=== PATIENT | male | born 1950 | race Caucasian/White ===

== ENCOUNTER 2016-08-15 12:35 | Inpatient (IN) | payer MEDICARE ==
[~2016-08-15] VITALS: Ht 180.3 cm; Wt 107.6 kg
[~2016-08-15 12:35] MED LIST: ALBU8.5H3 INH; ALEN35TA6 PO; AMLO5TAB2 PO; ASPI-496 PO; ATOR20TA9 PO; BECL8.7A5 INH; EZET10TA3 PO; FLUT16SP NAS; IPRA15SP NAS; LANS30CA PO; LEVO88TA4 PO; LORA10TA3 PO; METO25TA2 PO; METO25TA35 PO; MONT10TA6 PO; MULT-717 PO; NITR0.4T SL; PRED10TA PO; PRED5TAB PO
[2016-08-15] MEDS ORDERED: PROPOFOL 100 ML IV ONE ×2 (13:58→18:40)
[2016-08-15] MEDS ORDERED: MIDAZOLAM 1 MG/ML, 5ML ONE (14:06)
[2016-08-15] MEDS ORDERED: MIDAZOLAM HCL 25 MG in SODIUM CHLORIDE 0.9% 245 ML IV PRN (14:07)
[2016-08-15] MEDS ORDERED: VECURONIUM 50 MG in SODIUM CHLORIDE 0.9% 250 ML IV PRN (14:07)
[2016-08-15] MEDS ORDERED: PHARMACY MAY ADJ FOR RENAL FX MC SCH (14:30)
[2016-08-15] MEDS ORDERED: PLEASE ENTER HEIGHT AND WEIGHT MC SCH (14:30)
[2016-08-15] MEDS ORDERED: SODIUM BICARBONATE 8.4% 150 MEQ in DEXTROSE 5% 1,000 ML IV SCH ×2 (15:30→15:33)
[2016-08-15] MEDS ORDERED: VANCOMYCIN PER PHARMACY MC PRN (16:00)
[2016-08-15] MEDS ORDERED: PHARMACOKINETIC MONITORING MC PRN (16:00)
[2016-08-15] MEDS: methylPREDNISolone SOD SUCC 40 MG/ML IV SCH ×2 (16:13→22:23)
[2016-08-15 16:14] LABS: BLOOD UREA NITROGEN 23 mg/dL (7-18)
[2016-08-15] MEDS: FAMOTIDINE 20 MG/2 ML IV SCH (16:14)
[2016-08-15] MEDS: ENOXAPARIN 120MG/0.8ML SQ SCH (16:14)
[2016-08-15] MEDS: PIPERACILLIN/TAZO/PMX 3.375GM 50 ML IV SCH ×2 (16:15→22:23)
[2016-08-15 16:22] LABS: ASPARTATE AMINO TRANSFERASE 71 U/L (15-37)
[2016-08-15] MEDS ORDERED: VANCOMYCIN 2,000 MG in SODIUM CHLORIDE 0.9% 500 ML IV ONE (16:30)
[2016-08-15] MEDS ORDERED: MIDAZOLAM 1 MG/ML, 5ML IVPush ONE (16:30)
[2016-08-15] MEDS ORDERED: ALBUTEROL/IPRATROPIUM 2.5MG/0.5MG, 3 ML INLINE PRN (16:30)
[2016-08-15] MEDS: ALBUTEROL/IPRATROPIUM 2.5MG/0.5MG, 3 ML INLINE SCH ×3 (16:30→22:38)
[2016-08-15 17:20] LABS: ABG COLLECTION SITE RIGHT RADIAL; COLLATERAL CIRCULATION TESTING NORMAL
[2016-08-15 17:22] LABS: IS PT STATUS REG ER OR PRE ER? NO
[2016-08-15] MEDS: PROPOFOL 100 ML IV PRN ×2 (18:44→23:18)
[2016-08-15 18:48] LABS: ABG COLLECTION SITE LEFT BRACHIAL
[2016-08-15] MEDS: FENTANYL PF 2,500 MCG in SODIUM CHLORIDE 0.9% 200 ML IV PRN (18:56)
[2016-08-15] MEDS ORDERED: METOPROLOL SUCCINATE 25 MG TAB.ER.24H PO SCH (21:00)
[2016-08-15] MEDS: ATORVASTATIN 20 MG TABLET PO SCH (21:10)
[2016-08-15] MEDS: METOPROLOL TARTRATE 25 MG TABLET PO SCH (21:11)
[2016-08-15 22:45] LABS: IS PT STATUS REG ER OR PRE ER? NO
[2016-08-16] MEDS ORDERED: SODIUM ACETATE 150 MEQ in DEXTROSE 5% 1,000 ML IV SCH
[2016-08-16] MEDS: ALBUTEROL/IPRATROPIUM 2.5MG/0.5MG, 3 ML INLINE SCH ×6 (02:22→22:00)
[2016-08-16] MEDS: ENOXAPARIN 120MG/0.8ML SQ SCH ×2 (02:30→15:34)
[2016-08-16] MEDS: FAMOTIDINE 20 MG/2 ML IV SCH ×2 (02:50→15:29)
[2016-08-16] MEDS: SODIUM ACETATE 150 MEQ in DEXTROSE 5% 1,000 ML IV SCH ×4 (02:51→22:17)
[2016-08-16] MEDS: PROPOFOL 100 ML IV PRN ×4 (03:04→23:26)
[2016-08-16 04:00] VITALS: BP 115/71
[2016-08-16 04:22] LABS: ABG COLLECTION SITE LEFT RADIAL
[2016-08-16 04:23] LABS: COLLATERAL CIRCULATION TESTING NORMAL
[2016-08-16] MEDS: PIPERACILLIN/TAZO/PMX 3.375GM 50 ML IV SCH ×4 (04:57→22:16)
[2016-08-16 05:22] LABS: ASPARTATE AMINO TRANSFERASE 37 U/L (15-37); BLOOD UREA NITROGEN 27 mg/dL (7-18)
[2016-08-16 05:26] LABS: IS PT STATUS REG ER OR PRE ER? NO
[2016-08-16] MEDS: METOPROLOL TARTRATE 25 MG TABLET PO SCH ×2 (06:39→17:43)
[2016-08-16] MEDS: methylPREDNISolone SOD SUCC 40 MG/ML IV SCH ×3 (06:39→22:18)
[2016-08-16] MEDS ORDERED: DILTIAZEM 125 MG in SODIUM CHLORIDE 0.9% 100 ML IV PRN (07:30)
[2016-08-16] MEDS ORDERED: VECURONIUM 50 MG in SODIUM CHLORIDE 0.9% 250 ML IV PRN (08:30)
[2016-08-16] MEDS: ASPIRIN 81 MG TABLET EC PO SCH (10:09)
[2016-08-16] MEDS: EZETIMIBE 10 MG TABLET PO SCH (10:09)
[2016-08-16] MEDS: LEVOTHYROXINE 88 MCG TABLET PO SCH (10:09)
[2016-08-16] MEDS: VANCOMYCIN 2,300 MG in SODIUM CHLORIDE 0.9% 500 ML IV SCH (16:22)
[2016-08-16] MEDS: FUROSEMIDE 40 MG/4 ML IV SCH (17:42)
[2016-08-16] MEDS: ATORVASTATIN 20 MG TABLET PO SCH (22:17)
[2016-08-17] MEDS: ALBUTEROL/IPRATROPIUM 2.5MG/0.5MG, 3 ML INLINE SCH ×6 (01:57→22:00)
[2016-08-17] MEDS: ENOXAPARIN 120MG/0.8ML SQ SCH ×2 (02:30→13:57)
[2016-08-17] MEDS: FAMOTIDINE 20 MG/2 ML IV SCH ×2 (03:49→13:57)
[2016-08-17] MEDS: PIPERACILLIN/TAZO/PMX 3.375GM 50 ML IV SCH ×3 (03:49→20:33)
[2016-08-17 04:00] VITALS: BP 109/69
[2016-08-17 04:34] LABS: ABG COLLECTION SITE LEFT RADIAL
[2016-08-17 04:35] LABS: COLLATERAL CIRCULATION TESTING NORMAL
[2016-08-17 04:58] LABS: BLOOD UREA NITROGEN 27 mg/dL (7-18)
[2016-08-17] MEDS: METOPROLOL TARTRATE 25 MG TABLET PO SCH ×2 (06:00→16:12)
[2016-08-17] MEDS: SODIUM ACETATE 150 MEQ in DEXTROSE 5% 1,000 ML IV SCH (06:30)
[2016-08-17] MEDS: methylPREDNISolone SOD SUCC 40 MG/ML IV SCH ×3 (06:48→21:55)
[2016-08-17] MEDS ORDERED: SODIUM CHLORIDE 0.9% 1,000 ML IV SCH (07:00)
[2016-08-17] MEDS: ASPIRIN 81 MG TABLET EC PO SCH (07:52)
[2016-08-17] MEDS: LEVOTHYROXINE 88 MCG TABLET PO SCH (07:52)
[2016-08-17] MEDS: EZETIMIBE 10 MG TABLET PO SCH (07:52)
[2016-08-17] MEDS: FUROSEMIDE 40 MG/4 ML IV SCH ×3 (07:56→23:25)
[2016-08-17] MEDS: PROPOFOL 100 ML IV PRN ×6 (09:23→23:23)
[2016-08-17] MEDS: FENTANYL PF 2,500 MCG in SODIUM CHLORIDE 0.9% 200 ML IV PRN (14:45)
[2016-08-17] MEDS: POTASSIUM CHLORIDE 20 MEQ PACKET PO SCH (15:38)
[2016-08-17] MEDS: VANCOMYCIN 2,300 MG in SODIUM CHLORIDE 0.9% 500 ML IV SCH (16:11)
[2016-08-17] MEDS: ATORVASTATIN 20 MG TABLET PO SCH (20:43)
[2016-08-18] MEDS: PIPERACILLIN/TAZO/PMX 3.375GM 50 ML IV SCH (01:37)
[2016-08-18] MEDS: FAMOTIDINE 20 MG/2 ML IV SCH ×2 (01:37→15:11)
[2016-08-18] MEDS: ENOXAPARIN 120MG/0.8ML SQ SCH ×2 (01:37→15:11)
[2016-08-18] MEDS: ALBUTEROL/IPRATROPIUM 2.5MG/0.5MG, 3 ML INLINE SCH ×6 (02:00→22:00)
[2016-08-18] MEDS: PROPOFOL 100 ML IV PRN ×6 (02:15→23:19)
[2016-08-18 04:36] LABS: ABG COLLECTION SITE RIGHT RADIAL
[2016-08-18 04:37] LABS: COLLATERAL CIRCULATION TESTING NORMAL
[2016-08-18 05:30] VITALS: BP 135/65
[2016-08-18] MEDS: methylPREDNISolone SOD SUCC 40 MG/ML IV SCH ×3 (06:14→22:15)
[2016-08-18] MEDS: METOPROLOL TARTRATE 25 MG TABLET PO SCH ×2 (06:14→17:29)
[2016-08-18 06:25] LABS: BLOOD UREA NITROGEN 32 mg/dL (7-18)
[2016-08-18] MEDS: ASPIRIN 81 MG TABLET EC PO SCH (09:07)
[2016-08-18] MEDS: LEVOTHYROXINE 88 MCG TABLET PO SCH (09:07)
[2016-08-18] MEDS: FUROSEMIDE 40 MG/4 ML IV SCH ×2 (09:07→20:37)
[2016-08-18] MEDS: POTASSIUM CHLORIDE 20 MEQ PACKET PO SCH ×2 (09:07→17:24)
[2016-08-18] MEDS: EZETIMIBE 10 MG TABLET PO SCH (09:07)
[2016-08-18] MEDS: CEFTRIAXONE PMX 2GM/50ML 50 ML IVPB SCH (10:54)
[2016-08-18] MEDS ORDERED: DILTIAZEM 125 MG in SODIUM CHLORIDE 0.9% 100 ML IV SCH (11:00)
[2016-08-18] MEDS: DOXYCYCLINE 100 MG in DEXTROSE 5% 250 ML IV SCH ×2 (12:10→20:37)
[2016-08-18] MEDS ORDERED: AMIODARONE 150 MG in DEXTROSE 5% 100 ML IV ONE (15:30)
[2016-08-18] MEDS ORDERED: FILTER 0.22 MICRON IV PRN (15:30)
[2016-08-18] MEDS: AMIODARONE 900 MG in DEXTROSE 5% 482 ML IV PRN (15:47)
[2016-08-18] MEDS ORDERED: hydrALAzine 20 MG/ML, 1ML ONE (17:22)
[2016-08-18] MEDS: ATORVASTATIN 20 MG TABLET PO SCH (20:37)
[2016-08-18] MEDS: FAMOTIDINE 20 MG TABLET PO SCH (20:37)
[2016-08-18] MEDS: METOPROLOL 1 MG/ML, 5ML IVPush PRN ×3 (22:26→22:44)
[2016-08-19] MEDS: METOPROLOL 1 MG/ML, 5ML IVPush PRN ×3 (01:20→01:46)
[2016-08-19] MEDS: ALBUTEROL/IPRATROPIUM 2.5MG/0.5MG, 3 ML INLINE SCH ×6 (02:00→22:00)
[2016-08-19] MEDS ORDERED: DILTIAZEM 125 MG in SODIUM CHLORIDE 0.9% 100 ML IV PRN (02:30)
[2016-08-19] MEDS: ENOXAPARIN 120MG/0.8ML SQ SCH ×2 (02:30→14:13)
[2016-08-19 04:16] LABS: ABG COLLECTION SITE RIGHT RADIAL; COLLATERAL CIRCULATION TESTING NORMAL
[2016-08-19 04:51] LABS: BLOOD UREA NITROGEN 43 mg/dL (7-18)
[2016-08-19] MEDS: PROPOFOL 100 ML IV PRN ×4 (05:27→22:52)
[2016-08-19] MEDS: METOPROLOL TARTRATE 25 MG TABLET PO SCH ×3 (05:28→19:20)
[2016-08-19] MEDS: methylPREDNISolone SOD SUCC 40 MG/ML IV SCH (06:08)
[2016-08-19 08:00] VITALS: BP 159/90
[2016-08-19] MEDS: FAMOTIDINE 20 MG TABLET PO SCH ×2 (08:42→21:18)
[2016-08-19] MEDS: LEVOTHYROXINE 88 MCG TABLET PO SCH (08:42)
[2016-08-19] MEDS: EZETIMIBE 10 MG TABLET PO SCH (08:42)
[2016-08-19] MEDS: POTASSIUM CHLORIDE 20 MEQ PACKET PO SCH (08:42)
[2016-08-19] MEDS: ASPIRIN 81 MG TABLET EC PO SCH (08:42)
[2016-08-19] MEDS: CEFTRIAXONE PMX 2GM/50ML 50 ML IVPB SCH (08:43)
[2016-08-19 08:54] LABS: ASPARTATE AMINO TRANSFERASE 56 U/L (15-37)
[2016-08-19] MEDS ORDERED: LACTULOSE 20 GM/30 ML UDC PO PRN (09:30)
[2016-08-19] MEDS ORDERED: BISACODYL 10 MG SUPP PR PRN (09:30)
[2016-08-19] MEDS: DOXYCYCLINE 100 MG in DEXTROSE 5% 250 ML IV SCH ×2 (09:44→21:19)
[2016-08-19] MEDS: DOCUSATE 50 MG/5 ML, 10ML UDC PO SCH (09:46)
[2016-08-19] MEDS: hydrALAzine 20 MG/ML, 1ML IV PRN (11:47)
[2016-08-19] MEDS: INSULIN ASPART 100 UNITS/ML, 3ML PEN MEDIUM DOSE SS SQ-INSULIN SCH ×3 (11:47→21:19)
[2016-08-19] MEDS: AMIODARONE 900 MG in DEXTROSE 5% 482 ML IV PRN (12:52)
[2016-08-19] MEDS ORDERED: METOPROLOL TARTRATE 25 MG TABLET PO ONE (13:30)
[2016-08-19] MEDS: ATORVASTATIN 20 MG TABLET PO SCH (21:18)
[2016-08-19] MEDS: SENNOSIDES 8.8 MG/5 ML ORAL SOL NG SCH (21:18)
[2016-08-19] MEDS: FENTANYL PF 2,500 MCG in SODIUM CHLORIDE 0.9% 200 ML IV PRN (23:59)
[2016-08-20] MEDS: PROPOFOL 100 ML IV PRN ×5 (00:39→22:26)
[2016-08-20] MEDS: METOPROLOL 1 MG/ML, 5ML IVPush PRN ×3 (00:39→02:31)
[2016-08-20] MEDS: ALBUTEROL/IPRATROPIUM 2.5MG/0.5MG, 3 ML INLINE SCH ×6 (02:00→21:12)
[2016-08-20] MEDS: ENOXAPARIN 120MG/0.8ML SQ SCH ×2 (02:18→15:12)
[2016-08-20 04:20] LABS: ABG COLLECTION SITE LEFT RADIAL; COLLATERAL CIRCULATION TESTING NORMAL
[2016-08-20 04:44] LABS: BLOOD UREA NITROGEN 50 mg/dL (7-18)
[2016-08-20] MEDS: METOPROLOL TARTRATE 25 MG TABLET PO SCH ×2 (05:59→17:36)
[2016-08-20] MEDS: INSULIN ASPART 100 UNITS/ML, 3ML PEN MEDIUM DOSE SS SQ-INSULIN SCH ×4 (07:04→23:13)
[2016-08-20] MEDS: EZETIMIBE 10 MG TABLET PO SCH (09:40)
[2016-08-20] MEDS: ASPIRIN 81 MG TABLET EC PO SCH (09:40)
[2016-08-20] MEDS: FAMOTIDINE 20 MG TABLET PO SCH ×2 (09:40→21:05)
[2016-08-20] MEDS: DOCUSATE 50 MG/5 ML, 10ML UDC PO SCH (09:40)
[2016-08-20] MEDS: LEVOTHYROXINE 88 MCG TABLET PO SCH (09:40)
[2016-08-20] MEDS: CEFTRIAXONE PMX 2GM/50ML 50 ML IVPB SCH (09:40)
[2016-08-20] MEDS: DOXYCYCLINE 100 MG in DEXTROSE 5% 250 ML IV SCH ×2 (10:57→21:07)
[2016-08-20] MEDS: ATORVASTATIN 20 MG TABLET PO SCH (21:05)
[2016-08-20] MEDS: SENNOSIDES 8.8 MG/5 ML ORAL SOL NG SCH (21:05)
[2016-08-20] MEDS ORDERED: AMIODARONE 150 MG in DEXTROSE 5% 100 ML IV ONE (23:00)
[2016-08-20] MEDS ORDERED: AMIODARONE 900 MG in DEXTROSE 5% 482 ML IV PRN (23:00)
[2016-08-20] MEDS ORDERED: FILTER 0.22 MICRON IV PRN (23:30)
[2016-08-21] MEDS: ALBUTEROL/IPRATROPIUM 2.5MG/0.5MG, 3 ML INLINE SCH ×6 (01:41→21:02)
[2016-08-21] MEDS: ENOXAPARIN 120MG/0.8ML SQ SCH ×2 (02:30→15:35)
[2016-08-21] MEDS: PROPOFOL 100 ML IV PRN ×4 (02:49→21:31)
[2016-08-21 04:00] VITALS: BP 129/91
[2016-08-21 05:26] LABS: BLOOD UREA NITROGEN 44 mg/dL (7-18)
[2016-08-21] MEDS: INSULIN ASPART 100 UNITS/ML, 3ML PEN MEDIUM DOSE SS SQ-INSULIN SCH ×4 (05:26→23:06)
[2016-08-21] MEDS: METOPROLOL TARTRATE 25 MG TABLET PO SCH (06:49)
[2016-08-21 06:56] LABS: ABG COLLECTION SITE RIGHT RADIAL; COLLATERAL CIRCULATION TESTING NORMAL; FIO2 50 %
[2016-08-21] MEDS ORDERED: METOPROLOL TARTRATE 25 MG TABLET PO ONE (09:00)
[2016-08-21] MEDS: DOCUSATE 50 MG/5 ML, 10ML UDC PO SCH (09:01)
[2016-08-21] MEDS: CEFTRIAXONE PMX 2GM/50ML 50 ML IVPB SCH (09:01)
[2016-08-21] MEDS: ASPIRIN 81 MG TABLET EC PO SCH (09:01)
[2016-08-21] MEDS: FAMOTIDINE 20 MG TABLET PO SCH ×2 (09:01→21:03)
[2016-08-21] MEDS: LEVOTHYROXINE 88 MCG TABLET PO SCH (09:01)
[2016-08-21] MEDS: EZETIMIBE 10 MG TABLET PO SCH (09:01)
[2016-08-21] MEDS: DOXYCYCLINE 100 MG in DEXTROSE 5% 250 ML IV SCH ×2 (09:53→21:04)
[2016-08-21 14:02] LABS: ABG COLLECTION SITE LEFT RADIAL; COLLATERAL CIRCULATION TESTING NORMAL
[2016-08-21] MEDS: METOPROLOL TARTRATE 50 MG TABLET PO SCH (17:57)
[2016-08-21] MEDS: ATORVASTATIN 20 MG TABLET PO SCH (21:04)
[2016-08-22] MEDS: PROPOFOL 100 ML IV PRN ×3 (01:00→19:47)
[2016-08-22] MEDS: ALBUTEROL/IPRATROPIUM 2.5MG/0.5MG, 3 ML INLINE SCH ×6 (02:00→21:16)
[2016-08-22] MEDS: ENOXAPARIN 120MG/0.8ML SQ SCH ×2 (02:27→14:56)
[2016-08-22 04:00] VITALS: BP 111/70
[2016-08-22 04:22] LABS: ABG COLLECTION SITE LEFT RADIAL; COLLATERAL CIRCULATION TESTING NORMAL
[2016-08-22 05:08] LABS: BLOOD UREA NITROGEN 46 mg/dL (7-18)
[2016-08-22] MEDS: INSULIN ASPART 100 UNITS/ML, 3ML PEN MEDIUM DOSE SS SQ-INSULIN SCH ×4 (05:30→21:48)
[2016-08-22] MEDS: METOPROLOL TARTRATE 50 MG TABLET PO SCH ×2 (05:33→18:13)
[2016-08-22] MEDS: CEFTRIAXONE PMX 2GM/50ML 50 ML IVPB SCH (09:08)
[2016-08-22] MEDS: LEVOTHYROXINE 88 MCG TABLET PO SCH (09:09)
[2016-08-22] MEDS: DOCUSATE 50 MG/5 ML, 10ML UDC PO SCH (09:09)
[2016-08-22] MEDS: EZETIMIBE 10 MG TABLET PO SCH (09:09)
[2016-08-22] MEDS: FAMOTIDINE 20 MG TABLET PO SCH ×2 (09:09→20:19)
[2016-08-22] MEDS: ASPIRIN 81 MG TABLET EC PO SCH (09:09)
[2016-08-22] MEDS: DOXYCYCLINE 100 MG in DEXTROSE 5% 250 ML IV SCH ×2 (10:17→20:30)
[2016-08-22] MEDS: ATORVASTATIN 20 MG TABLET PO SCH (20:19)
[2016-08-23] MEDS: ENOXAPARIN 120MG/0.8ML SQ SCH ×2 (01:37→14:58)
[2016-08-23] MEDS: ALBUTEROL/IPRATROPIUM 2.5MG/0.5MG, 3 ML INLINE SCH ×6 (02:00→22:00)
[2016-08-23] MEDS: PROPOFOL 100 ML IV PRN (03:51)
[2016-08-23 04:00] VITALS: BP 124/72
[2016-08-23 04:22] LABS: ABG COLLECTION SITE LEFT RADIAL; COLLATERAL CIRCULATION TESTING NORMAL
[2016-08-23 04:54] LABS: BLOOD UREA NITROGEN 43 mg/dL (7-18)
[2016-08-23] MEDS: INSULIN ASPART 100 UNITS/ML, 3ML PEN MEDIUM DOSE SS SQ-INSULIN SCH ×4 (05:00→22:34)
[2016-08-23 05:37] LABS: DIFF TOTAL CELLS COUNTED 100 CELL DIFF
[2016-08-23 05:40] LABS: VERIFY COUNTS? YES
[2016-08-23] MEDS: METOPROLOL TARTRATE 50 MG TABLET PO SCH (05:45)
[2016-08-23] MEDS ORDERED: AcetaZOLAMIDE INJ 500 MG IVPush ONE (08:30)
[2016-08-23] MEDS: ASPIRIN 81 MG TABLET EC PO SCH (09:00)
[2016-08-23] MEDS: DOCUSATE 50 MG/5 ML, 10ML UDC PO SCH (09:42)
[2016-08-23] MEDS: CEFTRIAXONE PMX 2GM/50ML 50 ML IVPB SCH (09:42)
[2016-08-23] MEDS: FAMOTIDINE 20 MG TABLET PO SCH ×2 (09:43→19:21)
[2016-08-23] MEDS: EZETIMIBE 10 MG TABLET PO SCH (09:43)
[2016-08-23] MEDS: LEVOTHYROXINE 88 MCG TABLET PO SCH (09:43)
[2016-08-23] MEDS: DOXYCYCLINE 100 MG in DEXTROSE 5% 250 ML IV SCH ×2 (10:43→21:00)
[2016-08-23] MEDS: ASPIRIN 81 MG TABLET CHEW NG SCH (11:18)
[2016-08-23] MEDS: METOPROLOL TARTRATE 25 MG TABLET PO SCH (18:00)
[2016-08-23] MEDS: ATORVASTATIN 20 MG TABLET PO SCH (19:21)
[2016-08-24] MEDS: ALBUTEROL/IPRATROPIUM 2.5MG/0.5MG, 3 ML INLINE SCH ×6 (02:00→21:55)
[2016-08-24] MEDS: ENOXAPARIN 120MG/0.8ML SQ SCH ×2 (02:25→17:23)
[2016-08-24] MEDS: PROPOFOL 100 ML IV PRN ×5 (02:27→19:43)
[2016-08-24 04:35] LABS: ABG COLLECTION SITE LEFT RADIAL; COLLATERAL CIRCULATION TESTING NORMAL
[2016-08-24 04:39] VITALS: BP 104/63
[2016-08-24 04:41] LABS: BLOOD UREA NITROGEN 39 mg/dL (7-18)
[2016-08-24] MEDS: INSULIN ASPART 100 UNITS/ML, 3ML PEN MEDIUM DOSE SS SQ-INSULIN SCH ×4 (05:00→22:48)
[2016-08-24] MEDS: METOPROLOL TARTRATE 25 MG TABLET PO SCH ×2 (05:56→17:23)
[2016-08-24] MEDS: ASPIRIN 81 MG TABLET CHEW NG SCH (08:23)
[2016-08-24] MEDS: LEVOTHYROXINE 88 MCG TABLET PO SCH (08:23)
[2016-08-24] MEDS: DOCUSATE 50 MG/5 ML, 10ML UDC PO SCH (08:23)
[2016-08-24] MEDS: FAMOTIDINE 20 MG TABLET PO SCH ×2 (08:23→20:01)
[2016-08-24] MEDS: EZETIMIBE 10 MG TABLET PO SCH (08:23)
[2016-08-24] MEDS ORDERED: AcetaZOLAMIDE INJ 500 MG IVPush ONE (09:00)
[2016-08-24] MEDS: POTASSIUM CHLORIDE 20 MEQ PACKET NG SCH ×2 (09:50→20:02)
[2016-08-24] MEDS: ATORVASTATIN 20 MG TABLET PO SCH (20:01)
[2016-08-25] MEDS: ALBUTEROL/IPRATROPIUM 2.5MG/0.5MG, 3 ML INLINE SCH ×6 (01:49→22:31)
[2016-08-25] MEDS: ENOXAPARIN 120MG/0.8ML SQ SCH ×2 (03:44→16:18)
[2016-08-25 03:45] VITALS: BP 86/48
[2016-08-25 04:35] LABS: ABG COLLECTION SITE LEFT RADIAL; COLLATERAL CIRCULATION TESTING NORMAL
[2016-08-25] MEDS: INSULIN ASPART 100 UNITS/ML, 3ML PEN MEDIUM DOSE SS SQ-INSULIN SCH ×4 (05:00→22:58)
[2016-08-25] MEDS: METOPROLOL TARTRATE 25 MG TABLET PO SCH ×2 (06:00→18:00)
[2016-08-25 06:29] LABS: BLOOD UREA NITROGEN 41 mg/dL (7-18)
[2016-08-25] MEDS: FAMOTIDINE 20 MG TABLET PO SCH ×2 (08:58→20:20)
[2016-08-25] MEDS: ASPIRIN 81 MG TABLET CHEW NG SCH (08:58)
[2016-08-25] MEDS: DOCUSATE 50 MG/5 ML, 10ML UDC PO SCH (08:58)
[2016-08-25] MEDS: LEVOTHYROXINE 88 MCG TABLET PO SCH (08:58)
[2016-08-25] MEDS: EZETIMIBE 10 MG TABLET PO SCH (08:58)
[2016-08-25] MEDS ORDERED: FUROSEMIDE 20 MG/2 ML IV ONE (09:00)
[2016-08-25 11:10] LABS: ABG COLLECTION SITE LEFT RADIAL; COLLATERAL CIRCULATION TESTING NORMAL
[2016-08-25] MEDS: PROPOFOL 100 ML IV PRN ×3 (11:52→23:31)
[2016-08-25] MEDS: ATORVASTATIN 20 MG TABLET PO SCH (20:20)
[2016-08-26] MEDS: ALBUTEROL/IPRATROPIUM 2.5MG/0.5MG, 3 ML INLINE SCH ×6 (02:05→22:42)
[2016-08-26] MEDS: ENOXAPARIN 120MG/0.8ML SQ SCH ×2 (02:14→14:30)
[2016-08-26 04:00] VITALS: BP 123/73
[2016-08-26 04:56] LABS: ABG COLLECTION SITE RIGHT RADIAL; COLLATERAL CIRCULATION TESTING NORMAL
[2016-08-26] MEDS: INSULIN ASPART 100 UNITS/ML, 3ML PEN MEDIUM DOSE SS SQ-INSULIN SCH ×4 (05:00→23:00)
[2016-08-26 05:09] LABS: BLOOD UREA NITROGEN 47 mg/dL (7-18)
[2016-08-26] MEDS: METOPROLOL TARTRATE 25 MG TABLET PO SCH ×2 (05:50→16:58)
[2016-08-26] MEDS: PROPOFOL 100 ML IV PRN ×3 (05:53→19:49)
[2016-08-26] MEDS: DOCUSATE 50 MG/5 ML, 10ML UDC PO SCH (07:49)
[2016-08-26] MEDS ORDERED: MIDAZOLAM 1 MG/ML, 2ML IVPush ONE (08:30)
[2016-08-26] MEDS ORDERED: MIDAZOLAM 1 MG/ML, 2ML ONE (08:58)
[2016-08-26] MEDS ORDERED: FENTANYL PF 100 MCG/2ML ONE (08:58)
[2016-08-26] MEDS: FAMOTIDINE 20 MG TABLET PO SCH ×2 (10:08→20:55)
[2016-08-26] MEDS: ALBUMIN HUMAN 25% 100 ML IV SCH ×2 (10:08→19:49)
[2016-08-26] MEDS: LEVOTHYROXINE 88 MCG TABLET PO SCH (10:08)
[2016-08-26] MEDS: ASPIRIN 81 MG TABLET CHEW NG SCH (10:08)
[2016-08-26] MEDS: EZETIMIBE 10 MG TABLET PO SCH (10:08)
[2016-08-26] MEDS: LIDOCAINE-MPF 1%, 2ML ENDO PRN (10:42)
[2016-08-26] MEDS: FUROSEMIDE 20 MG/2 ML IV SCH ×2 (11:18→20:59)
[2016-08-26] MEDS: ATORVASTATIN 20 MG TABLET PO SCH (20:55)
[2016-08-27] MEDS: ALBUTEROL/IPRATROPIUM 2.5MG/0.5MG, 3 ML INLINE SCH ×6 (02:03→21:55)
[2016-08-27] MEDS: PROPOFOL 100 ML IV PRN ×4 (02:55→22:05)
[2016-08-27 03:00] VITALS: BP 117/80
[2016-08-27] MEDS: ENOXAPARIN 120MG/0.8ML SQ SCH ×2 (03:31→14:23)
[2016-08-27 04:39] LABS: ABG COLLECTION SITE RIGHT BRACHIAL
[2016-08-27 04:56] LABS: BLOOD UREA NITROGEN 49 mg/dL (7-18)
[2016-08-27] MEDS: INSULIN ASPART 100 UNITS/ML, 3ML PEN MEDIUM DOSE SS SQ-INSULIN SCH ×4 (05:00→23:03)
[2016-08-27] MEDS: METOPROLOL TARTRATE 25 MG TABLET PO SCH ×2 (05:27→17:53)
[2016-08-27] MEDS ORDERED: POTASSIUM CHLORIDE 20 MEQ TAB.ER.PRT PO ONE ×2 (05:30→06:30)
[2016-08-27] MEDS: ALBUMIN HUMAN 25% 100 ML IV SCH ×2 (09:32→20:50)
[2016-08-27] MEDS: ASPIRIN 81 MG TABLET CHEW NG SCH (09:33)
[2016-08-27] MEDS: EZETIMIBE 10 MG TABLET PO SCH (09:33)
[2016-08-27] MEDS: FAMOTIDINE 20 MG TABLET PO SCH ×2 (09:33→20:49)
[2016-08-27] MEDS: POTASSIUM CHLORIDE 20 MEQ PACKET PO SCH ×2 (09:34→20:50)
[2016-08-27] MEDS: DOCUSATE 50 MG/5 ML, 10ML UDC PO SCH (09:34)
[2016-08-27] MEDS: LEVOTHYROXINE 88 MCG TABLET PO SCH (09:35)
[2016-08-27] MEDS: FUROSEMIDE 20 MG/2 ML IV SCH ×2 (11:03→23:01)
[2016-08-27] MEDS: methylPREDNISolone SOD SUCC 125 MG/2 ML IVPush SCH ×2 (14:22→20:48)
[2016-08-27] MEDS: LIDOCAINE-MPF 1%, 2ML ENDO PRN (15:55)
[2016-08-27] MEDS: ATORVASTATIN 20 MG TABLET PO SCH (20:49)
[2016-08-28] MEDS: ALBUTEROL/IPRATROPIUM 2.5MG/0.5MG, 3 ML INLINE SCH ×6 (01:55→21:52)
[2016-08-28] MEDS: methylPREDNISolone SOD SUCC 125 MG/2 ML IVPush SCH ×4 (02:48→20:44)
[2016-08-28] MEDS: ENOXAPARIN 120MG/0.8ML SQ SCH (02:49)
[2016-08-28] MEDS: PROPOFOL 100 ML IV PRN ×4 (03:05→19:38)
[2016-08-28 03:30] LABS: ABG COLLECTION SITE RIGHT RADIAL; COLLATERAL CIRCULATION TESTING NORMAL
[2016-08-28 03:41] LABS: BLOOD UREA NITROGEN 54 mg/dL (7-18)
[2016-08-28 04:00] VITALS: BP 112/55
[2016-08-28] MEDS: INSULIN ASPART 100 UNITS/ML, 3ML PEN MEDIUM DOSE SS SQ-INSULIN SCH ×4 (05:37→22:53)
[2016-08-28] MEDS: METOPROLOL TARTRATE 25 MG TABLET PO SCH ×2 (05:38→18:02)
[2016-08-28] MEDS: EZETIMIBE 10 MG TABLET PO SCH (09:08)
[2016-08-28] MEDS: LEVOTHYROXINE 88 MCG TABLET PO SCH (09:08)
[2016-08-28] MEDS: ASPIRIN 81 MG TABLET CHEW NG SCH (09:08)
[2016-08-28] MEDS: DOCUSATE 50 MG/5 ML, 10ML UDC PO SCH (09:08)
[2016-08-28] MEDS: FAMOTIDINE 20 MG TABLET PO SCH ×2 (09:08→20:44)
[2016-08-28] MEDS: FENTANYL PF 100 MCG/2ML IVPush PRN ×2 (10:16→19:42)
[2016-08-28] MEDS: APIXABAN 5 MG TABLET PO SCH (20:43)
[2016-08-28] MEDS: ATORVASTATIN 20 MG TABLET PO SCH (20:44)
[2016-08-29] MEDS: PROPOFOL 100 ML IV PRN ×4 (01:45→21:56)
[2016-08-29] MEDS: ALBUTEROL/IPRATROPIUM 2.5MG/0.5MG, 3 ML INLINE SCH ×6 (01:55→22:00)
[2016-08-29] MEDS: methylPREDNISolone SOD SUCC 125 MG/2 ML IVPush SCH ×4 (02:24→20:18)
[2016-08-29 04:00] VITALS: BP 114/57
[2016-08-29] MEDS: OCULAR LUBRICANT OPHTH OINT 3.5 GM EACHEYE PRN ×2 (04:07→18:12)
[2016-08-29 04:27] LABS: ABG COLLECTION SITE RIGHT BRACHIAL
[2016-08-29 04:47] LABS: BLOOD UREA NITROGEN 70 mg/dL (7-18)
[2016-08-29] MEDS: INSULIN ASPART 100 UNITS/ML, 3ML PEN MEDIUM DOSE SS SQ-INSULIN SCH ×4 (05:16→23:27)
[2016-08-29] MEDS: METOPROLOL TARTRATE 25 MG TABLET PO SCH ×3 (06:00→18:07)
[2016-08-29] MEDS: INSULIN DETEMIR 100 UNITS/ML, PEN SQ-INSULIN SCH ×2 (08:00→23:27)
[2016-08-29] MEDS: LIDOCAINE-MPF 1%, 2ML ENDO PRN (09:24)
[2016-08-29] MEDS: FAMOTIDINE 20 MG TABLET PO SCH ×2 (09:24→20:18)
[2016-08-29] MEDS: DOCUSATE 50 MG/5 ML, 10ML UDC PO SCH (09:24)
[2016-08-29] MEDS: APIXABAN 5 MG TABLET PO SCH (09:24)
[2016-08-29] MEDS: ASPIRIN 81 MG TABLET CHEW NG SCH (09:24)
[2016-08-29] MEDS: EZETIMIBE 10 MG TABLET PO SCH (09:25)
[2016-08-29] MEDS: LEVOTHYROXINE 88 MCG TABLET PO SCH (09:25)
[2016-08-29] MEDS ORDERED: ARTIFICIAL TEARS OPHTH SOLN 15ML EACHEYE PRN (11:30)
[2016-08-29] MEDS: FENTANYL PF 100 MCG/2ML IVPush PRN (13:49)
[2016-08-29] MEDS: ATORVASTATIN 20 MG TABLET PO SCH (20:18)
[2016-08-29] MEDS: ENOXAPARIN 100 MG/ML SQ SCH (20:19)
[2016-08-30] MEDS: ALBUTEROL/IPRATROPIUM 2.5MG/0.5MG, 3 ML INLINE SCH ×6 (01:51→21:50)
[2016-08-30] MEDS: methylPREDNISolone SOD SUCC 125 MG/2 ML IVPush SCH ×4 (02:43→20:27)
[2016-08-30 04:00] VITALS: BP 132/74
[2016-08-30 05:39] LABS: BLOOD UREA NITROGEN 65 mg/dL (7-18)
[2016-08-30 05:43] LABS: ABG COLLECTION SITE RIGHT BRACHIAL
[2016-08-30] MEDS: INSULIN ASPART 100 UNITS/ML, 3ML PEN MEDIUM DOSE SS SQ-INSULIN SCH ×4 (06:00→22:19)
[2016-08-30] MEDS: METOPROLOL TARTRATE 25 MG TABLET PO SCH ×2 (06:00→18:00)
[2016-08-30] MEDS: PROPOFOL 100 ML IV PRN (06:05)
[2016-08-30] MEDS ORDERED: FUROSEMIDE 20 MG/2 ML IVPush STA (08:11)
[2016-08-30] MEDS: ASPIRIN 81 MG TABLET CHEW NG SCH (08:58)
[2016-08-30] MEDS: EZETIMIBE 10 MG TABLET PO SCH (08:58)
[2016-08-30] MEDS: LEVOTHYROXINE 88 MCG TABLET PO SCH (08:58)
[2016-08-30] MEDS: FAMOTIDINE 20 MG TABLET PO SCH ×2 (08:58→21:12)
[2016-08-30] MEDS: DOCUSATE 50 MG/5 ML, 10ML UDC PO SCH (09:00)
[2016-08-30] MEDS: ENOXAPARIN 100 MG/ML SQ SCH ×3 (09:11→21:12)
[2016-08-30] MEDS ORDERED: FUROSEMIDE 20 MG/2 ML IV STA (09:50)
[2016-08-30] MEDS ORDERED: INSULIN DETEMIR 100 UNITS/ML, PEN SQ-INSULIN SCH (19:00)
[2016-08-30] MEDS ORDERED: FUROSEMIDE 20 MG/2 ML IV ONE (21:00)
[2016-08-30] MEDS: ATORVASTATIN 20 MG TABLET PO SCH (21:12)
[2016-08-31 00:14] LABS: ABG COLLECTION SITE LEFT RADIAL; COLLATERAL CIRCULATION TESTING NORMAL
[2016-08-31] MEDS: ALBUTEROL/IPRATROPIUM 2.5MG/0.5MG, 3 ML INLINE SCH ×6 (02:00→22:25)
[2016-08-31] MEDS: methylPREDNISolone SOD SUCC 125 MG/2 ML IVPush SCH ×4 (02:18→21:01)
[2016-08-31] MEDS: hydrALAzine 20 MG/ML, 1ML IV PRN (02:18)
[2016-08-31] MEDS: FENTANYL PF 100 MCG/2ML IVPush PRN (03:08)
[2016-08-31] MEDS ORDERED: AMIODARONE 900 MG in DEXTROSE 5% 482 ML IV SCH (03:37)
[2016-08-31] MEDS ORDERED: AMIODARONE 150 MG in DEXTROSE 5% 100 ML IV STA (03:37)
[2016-08-31 04:00] VITALS: BP 128/82
[2016-08-31] MEDS ORDERED: FILTER 0.22 MICRON IV PRN (04:00)
[2016-08-31 05:11] LABS: ABG COLLECTION SITE RIGHT RADIAL; COLLATERAL CIRCULATION TESTING NORMAL
[2016-08-31 05:16] LABS: BLOOD UREA NITROGEN 73 mg/dL (7-18)
[2016-08-31 05:37] LABS: DIFF TOTAL CELLS COUNTED 100 CELL DIFF
[2016-08-31 05:38] LABS: VERIFY COUNTS? YES
[2016-08-31] MEDS: INSULIN ASPART 100 UNITS/ML, 3ML PEN MEDIUM DOSE SS SQ-INSULIN SCH ×4 (05:41→23:35)
[2016-08-31] MEDS: METOPROLOL TARTRATE 25 MG TABLET PO SCH ×2 (05:41→18:00)
[2016-08-31] MEDS: ASPIRIN 81 MG TABLET CHEW NG SCH (05:42)
[2016-08-31] MEDS ORDERED: BUPIVACAINE/PF-EPI 0.5% 1:200K ONE (06:57)
[2016-08-31] MEDS: DOCUSATE 50 MG/5 ML, 10ML UDC PO SCH (09:00)
[2016-08-31] MEDS: EZETIMIBE 10 MG TABLET PO SCH (09:08)
[2016-08-31] MEDS: FAMOTIDINE 20 MG TABLET PO SCH ×2 (09:08→21:01)
[2016-08-31] MEDS: ENOXAPARIN 100 MG/ML SQ SCH ×2 (09:09→21:01)
[2016-08-31] MEDS: LEVOTHYROXINE 88 MCG TABLET PO SCH (09:09)
[2016-08-31] MEDS: INSULIN DETEMIR 100 UNITS/ML, PEN SQ-INSULIN SCH (20:00)
[2016-08-31] MEDS: ATORVASTATIN 20 MG TABLET PO SCH (21:01)
[2016-09-01] MEDS: ALBUTEROL/IPRATROPIUM 2.5MG/0.5MG, 3 ML INLINE SCH ×6 (01:45→14:28)
[2016-09-01] MEDS: methylPREDNISolone SOD SUCC 125 MG/2 ML IVPush SCH ×2 (02:45→09:33)
[2016-09-01 04:00] VITALS: BP 150/86
[2016-09-01 04:49] LABS: ABG COLLECTION SITE NOT DOCUMENTED
[2016-09-01 05:09] LABS: BLOOD UREA NITROGEN 67 mg/dL (7-18)
[2016-09-01] MEDS: INSULIN ASPART 100 UNITS/ML, 3ML PEN MEDIUM DOSE SS SQ-INSULIN SCH ×2 (05:31→11:00)
[2016-09-01] MEDS: METOPROLOL TARTRATE 25 MG TABLET PO SCH (05:31)
[2016-09-01] MEDS: ARTIFICIAL TEARS OPHTH SOLN 15ML EACHEYE SCH ×4 (08:34→20:04)
[2016-09-01] MEDS: DOCUSATE 50 MG/5 ML, 10ML UDC PO SCH (09:00)
[2016-09-01] MEDS ORDERED: METOPROLOL TARTRATE 25 MG TABLET PO ONE (09:00)
[2016-09-01] MEDS: INSULIN DETEMIR 100 UNITS/ML, PEN SQ-INSULIN SCH ×2 (09:33→20:04)
[2016-09-01] MEDS: FAMOTIDINE 20 MG TABLET PO SCH ×2 (09:34→21:00)
[2016-09-01] MEDS: ENOXAPARIN 100 MG/ML SQ SCH ×2 (09:34→21:38)
[2016-09-01] MEDS: ASPIRIN 81 MG TABLET CHEW NG SCH (09:34)
[2016-09-01] MEDS: EZETIMIBE 10 MG TABLET PO SCH (09:34)
[2016-09-01] MEDS: OCULAR LUBRICANT OPHTH OINT 3.5 GM EACHEYE PRN (09:34)
[2016-09-01] MEDS: LEVOTHYROXINE 88 MCG TABLET PO SCH (09:34)
[2016-09-01] MEDS: INSULIN ASPART 100 UNITS/ML, PEN SQ-INSULIN SCH ×3 (12:35→21:37)
[2016-09-01] MEDS ORDERED: METO50TA82 PO (13:56)
[2016-09-01] MEDS ORDERED: LACT20SO13 PO (13:56)
[2016-09-01] MEDS ORDERED: PEG15DRO4 EACHEYE (13:56)
[2016-09-01] MEDS ORDERED: ENOX100S4 SQ (13:56)
[2016-09-01] MEDS ORDERED: PRED20TA PO (13:56)
[2016-09-01] MEDS ORDERED: FAMO20TA7 PO (13:56)
[2016-09-01] MEDS: METOPROLOL 1 MG/ML, 5ML IVPush PRN ×6 (15:27→23:15)
[2016-09-01] MEDS: METOPROLOL TARTRATE 50 MG TABLET PO SCH (17:50)
[2016-09-01] MEDS ORDERED: DIGOXIN 0.25 MG/ML, 2ML IVPush ONE (18:00)
[2016-09-01] MEDS: FENTANYL PF 100 MCG/2ML IVPush PRN ×2 (20:04→22:21)
[2016-09-01] MEDS: ATORVASTATIN 20 MG TABLET PO SCH (21:00)
[2016-09-01] MEDS ORDERED: AMIODARONE 150 MG in DEXTROSE 5% 100 ML IV ONE (22:00)
[2016-09-01] MEDS ORDERED: FILTER 0.22 MICRON IV PRN (22:00)
[2016-09-02] MEDS: ARTIFICIAL TEARS OPHTH SOLN 15ML EACHEYE SCH ×6 (00:15→20:27)
[2016-09-02] MEDS: DIGOXIN 0.25 MG/ML, 2ML IVPush SCH ×2 (00:16→05:51)
[2016-09-02] MEDS: ALBUTEROL/IPRATROPIUM 2.5MG/0.5MG, 3 ML INLINE SCH ×6 (02:16→22:00)
[2016-09-02] MEDS: METOPROLOL 1 MG/ML, 5ML IVPush PRN (02:51)
[2016-09-02] MEDS ORDERED: AMIODARONE 900 MG in DEXTROSE 5% 482 ML IV PRN (03:30)
[2016-09-02 04:00] VITALS: BP 90/63
[2016-09-02 04:23] LABS: ABG COLLECTION SITE RIGHT RADIAL; COLLATERAL CIRCULATION TESTING NORMAL
[2016-09-02 04:34] LABS: BLOOD UREA NITROGEN 94 mg/dL (7-18)
[2016-09-02] MEDS: METOPROLOL TARTRATE 50 MG TABLET PO SCH ×2 (05:50→17:34)
[2016-09-02] MEDS: INSULIN ASPART 100 UNITS/ML, PEN SQ-INSULIN SCH ×4 (07:00→21:14)
[2016-09-02] MEDS: SODIUM BICARBONATE 4.2%, 5ML NPPB SCH ×5 (07:00→23:00)
[2016-09-02] MEDS: INSULIN DETEMIR 100 UNITS/ML, PEN SQ-INSULIN SCH ×2 (08:00→20:28)
[2016-09-02] MEDS: OCULAR LUBRICANT OPHTH OINT 3.5 GM EACHEYE PRN ×3 (09:39→12:01)
[2016-09-02] MEDS: DIGOXIN 0.25 MG TABLET PO SCH (09:41)
[2016-09-02] MEDS: ASPIRIN 81 MG TABLET CHEW NG SCH (09:41)
[2016-09-02] MEDS: EZETIMIBE 10 MG TABLET PO SCH (09:42)
[2016-09-02] MEDS: FAMOTIDINE 20 MG TABLET PO SCH ×2 (09:42→20:52)
[2016-09-02] MEDS: LEVOTHYROXINE 88 MCG TABLET PO SCH (09:42)
[2016-09-02] MEDS: ENOXAPARIN 100 MG/ML SQ SCH (09:43)
[2016-09-02] MEDS: DOCUSATE 50 MG/5 ML, 10ML UDC PO SCH (09:43)
[2016-09-02] MEDS ORDERED: hydrALAzine 20 MG/ML, 1ML IV PRN (14:12)
[2016-09-02 15:43] LABS: ABG COLLECTION SITE LEFT RADIAL; COLLATERAL CIRCULATION TESTING NORMAL
[2016-09-02 18:25] LABS: ABG COLLECTION SITE LEFT BRACHIAL
[2016-09-02] MEDS: APIXABAN 5 MG TABLET PO SCH (20:52)
[2016-09-02] MEDS: ATORVASTATIN 20 MG TABLET PO SCH (20:52)
[2016-09-02] MEDS: FENTANYL PF 100 MCG/2ML IVPush PRN (21:04)
[2016-09-03] MEDS: ARTIFICIAL TEARS OPHTH SOLN 15ML EACHEYE SCH ×6 (00:26→20:04)
[2016-09-03] MEDS: ALBUTEROL/IPRATROPIUM 2.5MG/0.5MG, 3 ML INLINE SCH ×6 (01:48→22:00)
[2016-09-03] MEDS: SODIUM BICARBONATE 4.2%, 5ML NPPB SCH ×6 (01:49→23:00)
[2016-09-03 04:00] VITALS: BP 92/64
[2016-09-03 04:41] LABS: ABG COLLECTION SITE LEFT RADIAL; COLLATERAL CIRCULATION TESTING NORMAL
[2016-09-03 04:59] LABS: ASPARTATE AMINO TRANSFERASE 997 U/L (15-37)
[2016-09-03 05:05] LABS: BLOOD UREA NITROGEN 129 mg/dL (7-18)
[2016-09-03] MEDS: INSULIN ASPART 100 UNITS/ML, PEN SQ-INSULIN SCH ×4 (06:10→21:08)
[2016-09-03] MEDS: METOPROLOL TARTRATE 50 MG TABLET PO SCH ×2 (06:15→18:00)
[2016-09-03] MEDS: LEVOTHYROXINE 88 MCG TABLET PO SCH (06:16)
[2016-09-03] MEDS: ASPIRIN 81 MG TABLET CHEW NG SCH (09:01)
[2016-09-03] MEDS: DIGOXIN 0.25 MG TABLET PO SCH (09:01)
[2016-09-03] MEDS: FAMOTIDINE 20 MG TABLET PO SCH (09:01)
[2016-09-03] MEDS: APIXABAN 5 MG TABLET PO SCH ×2 (09:01→21:07)
[2016-09-03] MEDS: INSULIN DETEMIR 100 UNITS/ML, PEN SQ-INSULIN SCH ×2 (09:02→20:04)
[2016-09-03] MEDS: DOCUSATE 50 MG/5 ML, 10ML UDC PO SCH (09:03)
[2016-09-03] MEDS: FENTANYL PF 100 MCG/2ML IVPush PRN ×2 (10:38→22:07)
[2016-09-03 12:15] LABS: ASPARTATE AMINO TRANSFERASE 838 U/L (15-37)
[2016-09-03 12:20] LABS: BLOOD UREA NITROGEN 128 mg/dL (7-18)
[2016-09-03] MEDS: OCULAR LUBRICANT OPHTH OINT 3.5 GM EACHEYE PRN (13:27)
[2016-09-03] MEDS: VANCOMYCIN 50 MG/ML ORAL SUSP PO SCH ×3 (13:27→23:36)
[2016-09-03] MEDS ORDERED: FILTER 0.22 MICRON FOR AMIODARONE IV PRN (16:00)
[2016-09-03] MEDS ORDERED: AMIODARONE 150 MG in DEXTROSE 5% 100 ML IV ONE (16:00)
[2016-09-03] MEDS ORDERED: SODIUM CHLORIDE 0.9%, 250ML IVBOLUS ONE (19:00)
[2016-09-03] MEDS ORDERED: SODIUM CHLORIDE 0.9% 250 ML IV ONE ×2 (19:04→19:30)
[2016-09-03 19:43] LABS: BLOOD UREA NITROGEN 142 mg/dL (7-18)
[2016-09-03 19:49] LABS: POTASSIUM,URINE RANDOM 56 mmol/L
[2016-09-03] MEDS: NOREPINEPHRINE 4 MG in SODIUM CHLORIDE 0.9% 246 ML IV PRN (21:47)
[2016-09-03] MEDS: AMIODARONE 900 MG in DEXTROSE 5% 482 ML IV PRN (23:55)
[2016-09-04] MEDS: FENTANYL PF 100 MCG/2ML IVPush PRN ×5 (00:50→19:14)
[2016-09-04] MEDS: ARTIFICIAL TEARS OPHTH SOLN 15ML EACHEYE SCH ×7 (00:57→23:40)
[2016-09-04] MEDS: ALBUTEROL/IPRATROPIUM 2.5MG/0.5MG, 3 ML INLINE SCH ×6 (02:00→21:36)
[2016-09-04] MEDS: SODIUM BICARBONATE 4.2%, 5ML NPPB SCH ×6 (03:00→21:36)
[2016-09-04 03:24] LABS: ASPARTATE AMINO TRANSFERASE 905 U/L (15-37)
[2016-09-04 03:42] LABS: BLOOD UREA NITROGEN 145 mg/dL (7-18)
[2016-09-04 04:00] VITALS: BP 110/72
[2016-09-04 04:32] LABS: ABG COLLECTION SITE RIGHT RADIAL; COLLATERAL CIRCULATION TESTING NORMAL
[2016-09-04] MEDS: NOREPINEPHRINE 4 MG in SODIUM CHLORIDE 0.9% 246 ML IV PRN ×3 (05:35→19:26)
[2016-09-04] MEDS: METOPROLOL TARTRATE 50 MG TABLET PO SCH ×2 (05:56→16:53)
[2016-09-04] MEDS: VANCOMYCIN 50 MG/ML ORAL SUSP PO SCH ×4 (05:56→22:56)
[2016-09-04] MEDS: INSULIN ASPART 100 UNITS/ML, PEN SQ-INSULIN SCH ×4 (06:11→20:54)
[2016-09-04] MEDS: LEVOTHYROXINE 88 MCG TABLET PO SCH (06:20)
[2016-09-04] MEDS: INSULIN DETEMIR 100 UNITS/ML, PEN SQ-INSULIN SCH ×2 (08:15→19:52)
[2016-09-04] MEDS: DIGOXIN 0.25 MG TABLET PO SCH (09:13)
[2016-09-04] MEDS: FAMOTIDINE 20 MG TABLET PO SCH (09:13)
[2016-09-04] MEDS: ASPIRIN 81 MG TABLET CHEW NG SCH (09:13)
[2016-09-04] MEDS: APIXABAN 5 MG TABLET PO SCH ×2 (09:13→20:51)
[2016-09-04] MEDS: DOCUSATE 50 MG/5 ML, 10ML UDC PO SCH (09:14)
[2016-09-04] MEDS ORDERED: BISACODYL 10 MG SUPP PR PRN (10:00)
[2016-09-04] MEDS ORDERED: PINK LADY ENEMA 1,000 ML PR ONE (17:30)
[2016-09-04] MEDS ORDERED: SODIUM CHLORIDE 0.9% 250 ML IV PRN (23:00)
[2016-09-04] MEDS ORDERED: NOREPINEPHRINE 8 MG in SODIUM CHLORIDE 0.9% 242 ML IV PRN (23:13)
[2016-09-05] VITALS (7 sets, daily range): BP systolic 100–120; BP diastolic 54–71
[2016-09-05] MEDS ORDERED: FENTANYL PF 100 MCG/2ML IVPush PRN
[2016-09-05] MEDS: FENTANYL PF 100 MCG/2ML IVPush PRN ×2 (00:22→16:02)
[2016-09-05 02:58] LABS: BLOOD UREA NITROGEN 140 mg/dL (7-18)
[2016-09-05 03:03] LABS: ASPARTATE AMINO TRANSFERASE 1494 U/L (15-37)
[2016-09-05] MEDS: SODIUM BICARBONATE 4.2%, 5ML NPPB SCH ×4 (03:31→14:20)
[2016-09-05] MEDS: ALBUTEROL/IPRATROPIUM 2.5MG/0.5MG, 3 ML INLINE SCH ×4 (03:31→14:20)
[2016-09-05 03:34] LABS: DIFF TOTAL CELLS COUNTED 100 CELL DIFF
[2016-09-05 03:37] LABS: ANISOCYTOSIS 1+; HYPOCHROMIA 1+; POLYCHROMASIA 1+; VERIFY COUNTS? YES
[2016-09-05 03:39] LABS: LARGE PLATELETS 1+
[2016-09-05 04:46] LABS: ABG COLLECTION SITE LEFT RADIAL; COLLATERAL CIRCULATION TESTING NORMAL
[2016-09-05] MEDS: ARTIFICIAL TEARS OPHTH SOLN 15ML EACHEYE SCH ×3 (04:58→12:22)
[2016-09-05] MEDS: METOPROLOL TARTRATE 50 MG TABLET PO SCH (05:55)
[2016-09-05] MEDS: VANCOMYCIN 50 MG/ML ORAL SUSP PO SCH ×2 (05:56→12:22)
[2016-09-05] MEDS: LEVOTHYROXINE 88 MCG TABLET PO SCH (05:56)
[2016-09-05] MEDS: INSULIN ASPART 100 UNITS/ML, PEN SQ-INSULIN SCH ×3 (06:08→16:00)
[2016-09-05] MEDS: AMIODARONE 900 MG in DEXTROSE 5% 482 ML IV PRN (06:12)
[2016-09-05] MEDS: INSULIN DETEMIR 100 UNITS/ML, PEN SQ-INSULIN SCH (08:00)
[2016-09-05] MEDS ORDERED: PINK LADY ENEMA 1,000 ML PR ONE (08:30)
[2016-09-05] MEDS ORDERED: AMIODARONE 200 MG TABLET PO SCH (09:30)
[2016-09-05] MEDS: APIXABAN 5 MG TABLET PO SCH (09:32)
[2016-09-05] MEDS: ASPIRIN 81 MG TABLET CHEW NG SCH (09:32)
[2016-09-05] MEDS: DIGOXIN 0.25 MG TABLET PO SCH (09:32)
[2016-09-05] MEDS: DOCUSATE 50 MG/5 ML, 10ML UDC PO SCH (09:32)
[2016-09-05] MEDS: FAMOTIDINE 20 MG TABLET PO SCH (09:32)
== END 2016-09-05 20:59 | disposition expired | DRG 870 ==
LOC: CCU 13:46
PROVIDERS: ADMIT Hospitalist; ATTEND Hospitalist
PROC: 0BH17EZ Insertion of Endotracheal Airway into Trachea, Via Natural or Artificial Opening (ICD-10-PCS; principal; 2016-08-15)
PROC: 5A1955Z Respiratory Ventilation, Greater than 96 Consecutive Hours (ICD-10-PCS; 2016-08-15)
PROC: 02HV33Z Insertion of Infusion Device into Superior Vena Cava, Percutaneous Approach (ICD-10-PCS; 2016-08-15)
PROC: B548ZZA Ultrasonography of Superior Vena Cava, Guidance (ICD-10-PCS; 2016-08-15)
PROC: 0T9B70Z Drainage of Bladder with Drainage Device, Via Natural or Artificial Opening (ICD-10-PCS; 2016-08-15)
PROC: 30233N1 Transfusion of Nonautologous Red Blood Cells into Peripheral Vein, Percutaneous Approach (ICD-10-PCS; 2016-09-05)
DX: A41.9 Sepsis, unspecified organism (principal); J96.21 Acute and chronic respiratory failure with hypoxia; G93.41 Metabolic encephalopathy; J18.9 Pneumonia, unspecified organism; D68.59 Other primary thrombophilia; I50.32 Chronic diastolic (congestive) heart failure; J44.0 Chronic obstructive pulmonary disease with (acute) lower respiratory infection; N17.9 Acute kidney failure, unspecified; Z99.11 Dependence on respirator [ventilator] status; J44.1 Chronic obstructive pulmonary disease with (acute) exacerbation; Z95.5 Presence of coronary angioplasty implant and graft; D64.9 Anemia, unspecified; I25.10 Atherosclerotic heart disease of native coronary artery without angina pectoris; E87.70 Fluid overload, unspecified; E03.9 Hypothyroidism, unspecified; E78.5 Hyperlipidemia, unspecified; E86.0 Dehydration; I07.1 Rheumatic tricuspid insufficiency; I11.0 Hypertensive heart disease with heart failure; I27.2 Other secondary pulmonary hypertension; I45.81 Long QT syndrome; I48.91 Unspecified atrial fibrillation; J84.10 Pulmonary fibrosis, unspecified; Z51.5 Encounter for palliative care; K21.9 Gastro-esophageal reflux disease without esophagitis; Z66 Do not resuscitate; Z79.52 Long term (current) use of systemic steroids; Z80.0 Family history of malignant neoplasm of digestive organs; Z99.81 Dependence on supplemental oxygen; I25.2 Old myocardial infarction; Z80.1 Family history of malignant neoplasm of trachea, bronchus and lung; Z86.718 Personal history of other venous thrombosis and embolism; Z87.891 Personal history of nicotine dependence; Z79.82 Long term (current) use of aspirin; Z79.899 Other long term (current) drug therapy; Z80.9 Family history of malignant neoplasm, unspecified
CPT/HCPCS: 31622; 31624; 36415; 36569; 36600; 70450; 71010; 71250; 74000; 76700; 76937; 77001; 80048; 80053; 80162; 81001; 82140; 82436; 82570; 82803; 82962; 83605; 83735; 83880; 84133; 84300; 84478; 84484; 85025; 85610; 85730; 86850; 86900; 86923; 87040; 87070; 87081; 87205; 87324; 93005; 93306; 94002; 94003; 94640; 94660; J0696; J1650; J1815; J1940; J2250; J2543; J2704; J3010; J3370; J3490; J7060; J7070; J7620; P9047; C1751; J0282; J0360; J1120; J1160; J2920; J2930; J7030; J7040; J7050; J7512; P9016; S0028